=== PATIENT | female | born 1985 | race African-American/Black ===

== ENCOUNTER 2019-07-19 13:48 | Emergency (ER) | payer OTHER ==
[~2019-07-19] VITALS: Ht 165.1 cm; Wt 59.0 kg
[2019-07-19 14:23] LABS: ABSOLUTE LYMPHOCYTES 1.8 thou/uL (0.8-5.3); ABSOLUTE MONOCYTES 0.8 thou/uL (0.0-1.2); ABSOLUTE NEUTROPHILS 4.1 thou/uL (1.6-8.1); BASOPHILS 0.5 %; EOSINOPHILS 0.5 %; HEMATOCRIT 45.7 % (37.0-47.0); HEMOGLOBIN 16.1 gm/dL (12.0-15.0); LYMPHOCYTES 26.8 %; MCH 35.7 pg (26.0-34.0); MCHC 35.2 g/dL (28.0-37.0); MCV 101.3 fL (80.0-100.0); MONOCYTES 11.3 %; NUCLEATED RBCS 0 /100WBC; PLATELET COUNT* 245 thou/uL (150-400); POLYS 60.9 %; RBC 4.51 mil/uL (4.20-5.00); RDW-CV 13.7 % (10.5-14.5); WBC 6.7 thou/uL (4.0-11.0)
[2019-07-19 14:26] LABS: URINE BILIRUBIN NEGATIVE (Negative); URINE BLOOD 3+ (Negative); URINE CLARITY CLEAR; URINE COLOR YELLOW; URINE GLUCOSE-RANDOM NEGATIVE (Negative); URINE KETONES NEGATIVE (Negative); URINE LEUKOCYTES-REFLEX NEGATIVE (Negative); URINE NITRITE-REFLEX NEGATIVE (Negative); URINE PROTEIN NEGATIVE (Negative); URINE SPECIFIC GRAVITY <= 1.005 (1.005-1.030); URINE UROBILINOGEN 0.2 E.U./dl (0.2-1.0)
[2019-07-19 14:33] LABS: CALCIUM 9.5 mg/dL (8.5-10.1); CREATININE 0.7 mg/dL (0.6-1.3)
[2019-07-19 14:37] LABS: ALBUMIN 3.8 g/dL (3.4-5.0); TOTAL BILIRUBIN 0.3 mg/dL (<0.1-1.0); TOTAL PROTEIN 8.2 g/dL (6.4-8.2)
[2019-07-19 14:56] LABS: BACTERIA-REFLEX None Seen /HPF (None Seen); CASTS None Seen /LPF (None Seen); CRYSTALS None Seen /LPF (None Seen); SQUAMOUS 4-10 Moderate /LPF (0-3); URINE RBC 0-2 Rare /HPF (0-2); URINE WBC-REFLEX None Seen /HPF (0-5)
[2019-07-19] MEDS ORDERED: ONDANSETRON HCL4 M2 PO (15:10)
[2019-07-19] MEDS ORDERED: BENTYL 20 MG TA20 M1 PO (15:10)
[2019-07-19 16:40] VITALS: BP 148/100
== END 2019-07-19 16:43 | disposition home or self-care (01) ==
LOC: M.ERS 13:48
PROVIDERS: Nurse Practitioner Family
DX: K52.9 Noninfective gastroenteritis and colitis, unspecified (principal); R03.0 Elevated blood-pressure reading, without diagnosis of hypertension